=== PATIENT | male | born 1960 | race Caucasian/White ===

== ENCOUNTER 2022-07-13 13:41 | Emergency (ER) | payer OTHER ==
[2022-07-13] MEDS ORDERED: Lidocaine 1% 10 ML MDV INJECT ONE (14:19)
== END 2022-07-13 17:20 | disposition home or self-care (01) ==
LOC: JD.ED 13:41
DX: L02.31 Cutaneous abscess of buttock (principal); E11.9 Type 2 diabetes mellitus without complications; Z72.0 Tobacco use
CPT/HCPCS: 99283; J3490